=== PATIENT | female | born 1955 | race Caucasian/White ===

== ENCOUNTER 2020-09-15 18:49 | Emergency (ER) | payer BC ==
[~2020-09-15] VITALS: Ht 157.5 cm; Wt 51.0 kg
--- NOTE | 2020-09-15 20:59 | PHYS DOC ---
Past Medical History Past Medical History: No Pertinent History Past Surgical History: No Surgical History Smoking Status: Current Every Day Smoker Alcohol Use: None General Adult EDM: Chief Complaint: LOWER EXTREMITY SWELLING HPI: HPI: Patient is a 65 year old female with a past medical history of allergies presents with the chief complaint of bilateral feet swelling, redness, and fungal infection. Patient states onset of symptoms 1.5 weeks ago. She denies any associated pain. He sensation is normal. On exam all of patients toenail are yellow--- toes to ankles red and warm to touch with mild swelling. Patient states she has been home treating her feet by soaking in Epson salt. Review of Systems: Review of Systems: Constitutional: Denies fever or chills. [] Eyes: Denies change in visual acuity. [] HENT: Denies nasal congestion or sore throat. [] Respiratory: Denies cough or shortness of breath. [] Cardiovascular: Denies chest pain or edema. [] GI: Denies abdominal pain, nausea, vomiting, bloody stools or diarrhea. [] : Denies dysuria. [] Musculoskeletal: Denies back pain or joint pain. [] Integument: positive cellulitis, onychomycosis Neurologic: Denies headache, focal weakness or sensory changes. [] Endocrine: Denies polyuria or polydipsia. [] Lymphatic: Denies swollen glands. [] Psychiatric: Denies depression or anxiety. [] Heart Score: Risk Factors: Risk Factors: DM, Current or recent (<one month) smoker, HTN, HLP, family history of CAD, obesity. Risk Scores: Score 0 - 3: 2.5% MACE over next 6 weeks - Discharge Home Score 4 - 6: 20.3% MACE over next 6 weeks - Admit for Clinical Observation Score 7 - 10: 72.7% MACE over next 6 weeks - Early Invasive Strategies Allergies: Allergies: Allergies Coded Allergies Type Severity Reaction Last Updated Verified No Known Drug Allergies 09/15/20 No Physical Exam: PE: Constitutional: Well developed, well nourished, no acute distress, non-toxic appearance. [] HENT: Normocephalic, atraumatic, bilateral external ears normal, oropharynx moist, no oral exudates, nose normal. [] Eyes: PERRLA, EOMI, conjunctiva normal, no discharge. [] Neck: Normal range of motion, no tenderness, supple, no stridor. [] Cardiovascular:Heart rate regular rhythm, no murmur [] Lungs & Thorax: Bilateral breath sounds clear to auscultation [] Abdomen: Bowel sounds normal, soft, no tenderness, no masses, no pulsatile ma sses. [] Skin: toenail are yellow--- toes to ankles red and warm to touch with mild swelling. no open wounds no drainage. skin is blanchable Back: No tenderness, no CVA tenderness. [] Extremities: No tenderness, no cyanosis, no clubbing, ROM intact, Neurologic: Alert and oriented X 3, normal motor function, normal sensory function, no focal deficits noted. [] Psychologic: Affect normal, judgement normal, mood normal. [] Current Patient Data: Vital Signs: Vital Signs Date Time Temp Pulse Resp B/P (MAP) Pulse Ox O2 Delivery O2 Flow Rate FiO2 09/15/20 19:20 98.2 113 18 160/89 (112) 96 Room Air 98.2 EKG: EKG: [] Radiology/Procedures: Radiology/Procedures: [] Course & Med Decision Making: Course & Med Decision Making Pertinent Labs and Imaging studies reviewed. (See chart for details) [] Patient was evaluated for chief complaint. Work-up consisted of laboratory analysis. Treatment included IV antibiotics clindamycin. I discussed hospitalization with the patient for IV antibiotic therapy. She declines and wishes to be discharged home with oral antibiotics. Patient's labs without acute abnormalities. Patient discharged home on clindamycin and itraconazole. Rigo Disclaimer: Rigo Disclaimer: This electronic medical record was generated, in whole or in part, using a voice recognition dictation system. Departure Departure Impression: Primary Impression: Onychomycosis Additional Impression: Cellulitis Disposition: 01 DC HOME SELF CARE/HOMELESS Admitting Physician: HIMNay Condition: STABLE Referrals: LUDWIG ARSHAD MD (PCP) Patient Instructions: Cellulitis Scripts Itraconazole (ITRACONAZOLE) 100 Mg Capsule 100 MG PO BID for 28 Days, #56 CAP Prov: CRYSTAL DESIR I DO 09/15/20 Clindamycin Hcl (CLINDAMYCIN HCL) 300 Mg Capsule 300 MG PO TID for 10 Days, #30 CAP Prov: CRYSTAL DESIR I DO 09/15/20 CRYSTAL DESIR I DO Sep 15, 2020 20:59
[2020-09-15] MEDS ORDERED: CLINDAMYCIN 600MG PREMIX 50 ML IV ONE (21:00)
[2020-09-15] MEDS ORDERED: CLIN300C8 PO (21:23)
[2020-09-15] MEDS ORDERED: ITRA100C PO (21:23)
[2020-09-15 21:39] LABS: BASO % 0 % (0-3); EOS % 0 % (0-3); HEMATOCRIT 41.8 % (36.0-47.0); HEMOGLOBIN 14.2 g/dL (12.0-15.5); LYMPH # 0.8 x10^3/uL (1.0-4.8); LYMPH % 10 % (24-48); MEAN CORPUSCULAR HEMOGLOBIN 29 pg (25-35); MEAN CORPUSCULAR HGB CONC 34 g/dL (31-37); MEAN CORPUSCULAR VOLUME 86 fL (79-100); MONO # 0.5 x10^3/uL (0.0-1.1); MONO % 6 % (0-9); NEUT % 83 % (31-73); PLATELET COUNT 272 x10^3/uL (140-400); RED BLOOD COUNT 4.84 x10^6/uL (3.50-5.40); RED CELL DISTRIBUTION WIDTH 13.2 % (11.5-14.5); WHITE BLOOD COUNT 8.4 x10^3/uL (4.0-11.0)
[2020-09-15 21:49] LABS: CALCIUM 9.3 mg/dL (8.5-10.1); CREATININE 0.6 mg/dL (0.6-1.0); GFR 100.6; POTASSIUM 4.1 mmol/L (3.5-5.1)
[2020-09-15 21:54] LABS: ALBUMIN 3.8 g/dL (3.4-5.0); ALBUMIN/GLOBULIN RATIO 1.3 (1.0-1.7); TOTAL BILIRUBIN 0.3 mg/dL (0.2-1.0); TOTAL PROTEIN 6.8 g/dL (6.4-8.2)
[2020-09-15 22:04] VITALS: BP 178/86
== END 2020-09-15 22:26 | disposition home or self-care (01) ==
LOC: ER 18:49
DX: B35.1 Tinea unguium (principal); L03.116 Cellulitis of left lower limb; L03.115 Cellulitis of right lower limb; F17.200 Nicotine dependence, unspecified, uncomplicated
CPT/HCPCS: 36415; 80053; 85025; 96365; 99284; J3490